=== PATIENT | female | born 1990 | race Caucasian/White ===

== ENCOUNTER → 2024-07-23 | Outpatient (CLI) | payer BC ==
--- NOTE | 2024-07-23 16:02 | US ---
EXAMINATION TYPE: US thyroid st tissue head/neck DATE OF EXAM: 07/23/2024 COMPARISON: NONE CLINICAL INDICATION: Female, 34 years old with history of M54.2 CERVICALGIA; pain inferior to right e ar x 6months TECHNIQUE: Grayscale and color Doppler imaging of the area of pain FINDINGS: There is a 1.0x0.5x0.6cm benign appearing lymph node within the right parotid gland at annmarie ents area of pain IMPRESSION: As above. No suspicious solid or cystic masses. No suspicious enlarged or abnormal adenop athy. [facility], , 07/23/2024 3:59 PM
== END | disposition home or self-care (01) ==
LOC: RADUSWWP 15:24
PROVIDERS: ATTEND Family Medicine
DX: M54.2 Cervicalgia (principal); H92.01 Otalgia, right ear
CPT/HCPCS: 76536